=== PATIENT | female | born 1965 | race Caucasian/White ===

== ENCOUNTER 2020-06-27 13:01 | Emergency (ER) | payer BC, OTHER ==
[2020-06-27 13:12] VITALS: TEMP 97.8
[2020-06-27] MEDS ORDERED: SODIUM CHLORIDE 0.9% 1,000 ML IV STA (13:26)
[2020-06-27] MEDS ORDERED: KETOROLAC 15 MG/ML 1 ML VIAL IVP STA (13:27)
--- NOTE | 2020-06-27 13:37 | ED ---
Chest Pain HPI - General Chief Complaint: Chest Pain Stated Complaint: TRISTEN Time Seen by Provider: 06/27/20 13:14 Source: patient, RN notes reviewed Mode of arrival: ambulatory Limitations: no limitations - History of Present Illness Initial Comments: This is a 54-year-old female with no prior history of disease but history of pneumonia in the past who states she had the onset over the past 3 days of shortness of breath which was related to getting walking pneumonia again which she's had the past she denies any fevers chills or sweats however she states the pain and right upper chest that has developed over last day or so that sharp in nature currently 7/10 does get worse with deep breathing and movement. She states she short of breath because of the pain. She denies any known trauma though she does take care of a grandchild who may have had blood in her last week or so. No other complaints this time no other modifying factors MD Complaint: chest pain - Related Data Previous Rx's Medication Instructions Recorded Ibuprofen 800 mg PO Q6HR PRN #20 tablet 06/27/20 Allergies Allergy/AdvReac Type Severity Reaction Status Date / Time Sulfa (Sulfonamide Allergy Unknown Verified 06/27/20 13:09 Antibiotics) Review of Systems ROS Statement: Those systems with pertinent positive or pertinent negative responses have been documented in the HPI. ROS Other: All systems not noted in ROS Statement are negative. EKG Findings - EKG Results: EKG: interpreted by LONG, sinus rhythm (Normal sinus rhythm 92. Interval 124 QRS 74 QT since QTC 350/[address]-T wave changes) Past Medical History Past Medical History: No Reported History History of Any Multi-Drug Resistant Organisms: None Reported Past Surgical History: Breast Surgery, Section Additional Past Surgical History / Comment(s): BREAST AUGMENTATION Past Psychological History: No Psychological Hx Reported Smoking Status: Current every day smoker Past Alcohol Use History: None Reported Past Drug Use History: None Reported General Exam - General Exam Comments Initial Comments: This is a well-developed asthenic appearing female who is awake alert oriented 3 Limitations: no limitations General appearance: alert, anxious Head exam: Present: atraumatic, normocephalic, normal inspection Eye exam: Present: normal appearance, PERRL, EOMI. Absent: scleral icterus, conjunctival injection, periorbital swelling ENT exam: Present: normal exam, mucous membranes moist Neck exam: Present: normal inspection, full ROM, other (stridor JVD or bruits). Absent: tenderness, meningismus, lymphadenopathy Respiratory exam: Present: normal lung sounds bilaterally, chest wall tenderness (Is palpation of the right). Absent: respiratory distress, wheezes, rales, rhonchi, stridor Cardiovascular Exam: Present: regular rate, normal rhythm, normal heart sounds. Absent: systolic murmur, diastolic murmur, rubs, gallop, clicks GI/Abdominal exam: Present: soft, normal bowel sounds. Absent: distended, tenderness, guarding, rebound, rigid Extremities exam: Present: normal inspection, full ROM, normal capillary refill. Absent: tenderness, pedal edema, joint swelling, calf tenderness Back exam: Present: normal inspection Neurological exam: Present: alert, oriented X3, CN II-XII intact Psychiatric exam: Present: normal affect, normal mood Skin exam: Present: warm, dry, intact, normal color. Absent: rash Course Vital Signs 06/27/20 13:10 Temperature 97.8 F Pulse Rate 106 H Respiratory 18 Rate Chest Pain MDM - MDM Imaging reviewed no acute findings. Patient did get relief from the IV Toradol. The presentation is consistent with costochondritis. We did a long discussion regarding this. She also is trying to stop smoking she is down to 4 cigarettes per day. Disposition Clinical Impression: Costochondritis, Chest wall syndrome Disposition: HOME SELF-CARE Condition: Good Instructions (If sedation given, give patient instructions): Costochondritis (ED) Additional Instructions: Prescriptions sent to the preferred pharmacy Prescriptions: Ibuprofen 800 mg PO Q6HR PRN #20 tablet PRN Reason: Pain Is patient prescribed a controlled substance at d/c from ED?: No Referrals: None,Stated [Primary Care Provider] - 1-2 days
[2020-06-27 14:02] LABS: Basophils # (A) 0.1 k/uL (0-0.2); Basophils % (A) 0 %; Eosinophils % (A) 0 %; HCT 42.9 % (34.0-46.0); HGB 13.9 gm/dL (11.4-16.0); Lymphocytes # (A) 1.4 k/uL (1.0-4.8); Lymphocytes % (A) 10 %; MCH 29.8 pg (25.0-35.0); MCHC 32.5 g/dL (31.0-37.0); MCV 91.6 fL (80.0-100.0); Mean Platelet Volume 6.7; Monocytes # (A) 0.6 k/uL (0-1.0); Monocytes % (A) 4 %; Neutrophils # (A) 12.5 k/uL (1.3-7.7); Neutrophils % (A) 85 %; Platelet Count 451 k/uL (150-450); RBC 4.68 m/uL (3.80-5.40); RDW 13.1 % (11.5-15.5); WBC 14.7 k/uL (3.8-10.6)
[2020-06-27 14:13] LABS: ALT 14 U/L (4-34); AST 26 U/L (14-36); African American GFR (CKD) >90 (>60 ml/min/1.73 sqM); Albumin 4.4 g/dL (3.5-5.0); Alkaline Phosphatase 96 U/L (38-126); Anion Gap 8 mmol/L; Blood Urea Nitrogen 8 mg/dL (7-17); Calcium 9.7 mg/dL (8.4-10.2); Carbon Dioxide 28 mmol/L (22-30); Chloride 105 mmol/L (98-107); Creatine Kinase 97 U/L (30-135); Glucose 108 mg/dL (74-99); Non-African American GFR(CKD) 80 (>60 ml/min/1.73 sqM); Potassium 4.3 mmol/L (3.5-5.1); Sodium 141 mmol/L (137-145); Total Bilirubin 1.1 mg/dL (0.2-1.3); Total Protein 7.3 g/dL (6.3-8.2)
--- NOTE | 2020-06-27 14:25 | XR ---
EXAMINATION TYPE: XR chest 2V DATE OF EXAM: 06/27/2020 COMPARISON: NONE HISTORY: Chest pain TECHNIQUE: FINDINGS: There is pulmonary hyperinflation and flattening of the diaphragm. There is mild scarring a t the lung apices. There are no hilar masses. Heart size is normal. Bony thorax is intact. Lungs are clear of consolidation. IMPRESSION: COPD. No active cardiopulmonary disease. Normal heart.
[2020-06-27 14:45] LABS: D-Dimer 0.57 mg/L FEU (<0.60); INR 0.9 (<1.2); Prothrombin Time 9.7 sec (9.0-12.0)
[2020-06-27 15:33] VITALS: BP 100/65; PULSE 73; RESP 17
== END 2020-06-27 15:36 | disposition home or self-care (01) ==
LOC: EC 13:01
DX: M94.0 Chondrocostal junction syndrome [Tietze] (principal); F17.210 Nicotine dependence, cigarettes, uncomplicated; Z88.2 Allergy status to sulfonamides
CPT/HCPCS: 36415; 93005; 85379; 80053; 82550; 83690; 83735; 84484; 85025; 85610; 85730; 71046; 99285; 96374; 96361 ×2; J1885

== ENCOUNTER → 2021-02-03 | Outpatient (CLI) | payer BC ==
--- NOTE | 2021-02-03 11:54 | XR ---
EXAMINATION TYPE: XR Hip LT and AP Pelvis DATE OF EXAM: 02/03/2021 CLINICAL HISTORY: pain TECHNIQUE: Single view the pelvis is submitted. 2 views of left hip are submitted. FINDINGS: No evidence for fracture, dislocation or bony lesion. Joint spaces are well-preserved. S I joints appear symmetric. IMPRESSION: 1. No acute fracture or dislocation seen. ICD 10 NO FRACTURE, INITIAL EVALUATION
== END | disposition home or self-care (01) ==
LOC: RADXRMAIN 11:15
PROVIDERS: ATTEND Family Medicine
DX: M25.552 Pain in left hip (principal)
CPT/HCPCS: 73502